=== PATIENT | male | born 2000 | race Caucasian/White ===

== ENCOUNTER 2024-01-20 04:01 | Emergency (ER) | payer BC ==
[~2024-01-20] VITALS: Ht 175.3 cm; Wt 71.4 kg
[2024-01-20 04:03] VITALS: TEMP 98.4
[2024-01-20] MEDS ORDERED: Ketorolac 30 MG/ML VIAL IV ONE (04:30)
[2024-01-20] MEDS ORDERED: NS 1,000 ML IV ONE (04:30)
[2024-01-20 04:31] LABS: BASO % 0.3 % (0.0-2.0); EOS # 0.1 K/mm3 (0.0-0.7); EOS % 0.6 % (0.0-4.0); GRAN # 8.3 K/mm3 (1.4-6.5); GRAN % 69.2 % (42.2-75.2); HEMATOCRIT 46.8 % (42.0-52.0); HEMOGLOBIN 16.1 g/dl (13.5-18.0); LYMPH # 2.6 K/mm3 (1.2-3.4); LYMPH % 21.9 % (20.0-51.0); MEAN CELL VOLUME 88 fl (80.0-100.0); MEAN CORPUSCULAR HEMOGLOBIN 30 pg (27-31); MEAN CORPUSCULAR HGB CONC 34 g/dl (33.0-37.0); MEAN PLATELET VOLUME 8.7 fl (7.4-10.4); MONO # 0.9 K/mm3 (0.1-0.6); MONO % 7.8 % (1.7-9.3); PLATELET COUNT 273 K/mm3 (130-400); RED BLOOD COUNT 5.32 M/mm3 (4.20-5.60); REDCELL DISTRIBUTION WIDTH-CV 11.7 % (11.5-14.5)
[2024-01-20 04:48] LABS: ALBUMIN 4.9 g/dL (3.5-5.0); BILIRUBIN,TOTAL 0.7 mg/dL (0.2-1.2); C-REACTIVE PROTEIN 0.16 mg/dL (0.00-0.50); CALCIUM 10.2 mg/dL (8.4-10.2); POTASSIUM 4.1 mEq/L (3.5-4.5); TOTAL PROTEIN 8.2 g/dl (6.2-8.1)
[2024-01-20 04:50] LABS: ERYTHROCYTE SEDIMENTATION RATE 2 mm/hr (0-15)
[2024-01-20] MEDS ORDERED: DOXYCYCLINE 10100 MG PO (05:10)
[2024-01-20] MEDS ORDERED: cefTRIAXone 1 G in Water For Injection,Sterile 10 ML IV ONE (05:15)
[2024-01-20 05:30] VITALS: BP 124/88; PULSE 72
== END 2024-01-20 05:31 | disposition home or self-care (01) ==
LOC: COL.ER 04:01
PROVIDERS: Emergency Medicine
DX: L03.114 Cellulitis of left upper limb (principal)
CPT/HCPCS: J0696; J1885; J7030

== ENCOUNTER → 2024-01-22 | Outpatient (CLI) | payer BC ==
[~2024-01-22] MED LIST: DOXYCYCLINE 10100 MG PO
== END ==
LOC: COL.RAD 09:35
DX: M25.532 Pain in left wrist (principal)